=== PATIENT | male | born 1955 ===

== ENCOUNTER 2021-08-21 09:55 | Day surgery (SDC) | payer MEDICARE, OTHER ==
--- NOTE | 2021-08-19 13:22 | HP ---
DATE OF SURGERY: 08/21/2021 HISTORY OF PRESENT ILLNESS: The patient presents with complaints of some occasional constipation. He had some scant bright red rectal bleeding. He had some pain at times that has been chronic for this patient. He feels a lump at the anus. It usually self reduces when he wipes. The patient likely has some prolapsing internal bleeding hemorrhoids grade 3. The patient had a colonoscopy about 11 to 12 years ago at [facility]. PAST MEDICAL HISTORY: Hypertension, hyperlipidemia, chronic obstructive pulmonary disease, asthma. PAST SURGICAL HISTORY: Left rotator cuff. ALLERGIES: CODEINE. PENICILLIN. OXYCODONE. MEDICATIONS: Omeprazole, Celebrex, allopurinol, losartan, cetirizine, atorvastatin, Bystolic, Symbicort. FAMILY HISTORY: Thyroid cancer. SOCIAL HISTORY: Negative. REVIEW OF SYSTEMS: CONSTITUTIONAL: Denies fever or chills. CHEST: Denies shortness of breath. CVS: Denies chest pain. ABDOMEN: Denies abdominal pain, nausea, vomiting. Reports constipation and bright red rectal bleeding. PHYSICAL EXAMINATION: GENERAL: No acute distress. CHEST: Nonlabored. No shortness of breath. CVS: Regular rate and rhythm. ABDOMEN: Soft, nontender. IMPRESSION: Screening and evaluation of internal hemorrhoids and constipation. PLAN: Colonoscopy with Dr. Good Pandey. As dictated by Ginger Mistry NP.
[2021-08-21] MEDS ORDERED: Lactated Ringers 1,000 ML IV SCH (10:30)
[2021-08-21] MEDS ORDERED: Lactated Ringers 1,000 ML IV ONE (12:15)
[2021-08-21] MEDS ORDERED: Versed 2 MG/2 ML Injection ONE (12:18)
[2021-08-21] MEDS ORDERED: DIPRIVAN 200 MG/20 ML IV ONE (12:18)
[2021-08-21 13:03] VITALS: O2SAT 98
--- NOTE | 2021-08-21 13:47 | OP ---
SURGERY DATE/TIME: 08/21/2021 1220 PREOPERATIVE DIAGNOSIS: Complaint of hemorrhoids, nodules by his anus. Hemorrhoidal disease. POSTOPERATIVE DIAGNOSIS: Normal. PROCEDURE: Colonoscopy complete to cecum. SURGEON: Good Pandey M.D. ANESTHESIA: MAC. COMPLICATIONS: None. CONDITION: Stable. INDICATION: He is 66. He has not had a recent scope. It has been 10-12 years. DESCRIPTION OF PROCEDURE: He is taken to endoscopy. Left lateral decubitus position. Anal digital examination carefully applied at this time. Prostate was normal. There was just some mild residual skin tags. There was moderate internal hemorrhoids but none of them thrombosed today. The scope advanced to the cecum. Base of the cecum, ileocecal valve, appendiceal orifice were all normal. Circumferential withdrawal. Cecum, ascending, hepatic, transverse, splenic, descending, sigmoid, rectum, anus. Moderate internal hemorrhoids. The patient tolerated the procedure satisfactorily. Findings discussed with the in the waiting room. PLAN: Follow up ten years.
[2021-08-21 14:36] VITALS: BP 144/97; PULSE 57
== END 2021-08-21 13:30 | disposition home or self-care (01) ==
LOC: SDC 09:55 → EDSTATUS 14:52
PROVIDERS: ATTEND Surgery
DX: K64.8 Other hemorrhoids (principal); K62.89 Other specified diseases of anus and rectum
CPT/HCPCS: J2250; J2704